=== PATIENT | female | born 1995 | race Caucasian/White ===

== ENCOUNTER 2016-08-11 16:13 | Emergency (ER) | payer OTHER ==
[~2016-08-11] VITALS: Ht 139.7 cm; Wt 45.4 kg
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
[2016-08-11] MEDS ORDERED: JUNEL FE 1 MG-1 EACH PO (17:16)
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
[2016-08-11] MEDS ORDERED: CYCLOBENZAPRINE5 M2 PO (18:55)
[2016-08-11] MEDS ORDERED: IBUPROFEN600 M1 PO (18:55)
[2016-08-11 19:06] VITALS: BP 105/57
== END 2016-08-11 19:06 ==
LOC: ERH 16:13
DX: S16.1XXA Strain of muscle, fascia and tendon at neck level, initial encounter (principal); S06.0X0A Concussion without loss of consciousness, initial encounter; V43.52XA Car driver injured in collision with other type car in traffic accident, initial encounter
CPT/HCPCS: 81025